=== PATIENT | female | born 1980 | race Two or more races ===

== ENCOUNTER 2024-11-19 01:08 | Emergency (ER) | payer MEDICAID ==
[~2024-11-19] VITALS: Ht 162.6 cm; Wt 110.0 kg
[2024-11-19 01:27] VITALS: BP 140/74; PULSE 100; RESP 20; O2SAT 98
== END 2024-11-19 02:52 | disposition left against medical advice (07) ==
LOC: ER 01:08
DX: R06.02 Shortness of breath (principal); R05.9 Cough, unspecified; Z53.21 Procedure and treatment not carried out due to patient leaving prior to being seen by health care provider